=== PATIENT | male | born 1935 | race Caucasian/White ===

== ENCOUNTER 2017-05-26 09:20 | Outpatient (CLI) | payer MEDICARE ==
--- NOTE | 2017-05-26 16:06 | NM ---
TOTAL BODY BONE SCAN: 05/26/17 HISTORY: 82-year-old male with history of disorder of the bone. History of kyphoplasty in 2014 with multiple vertebral fractures as well as multiple rib fractures. COMPARISON: 11/12/13 bone scan. Patient was injected with 32.0 millicuries technetium 99m MDP intravenously. Two whole body images d emonstrate resolution of the previously noted multiple left rib fractures. There is considerably les s abnormal activity noted in the lumbar and thoracic spines with the most persistent residual activi ty noted in the right T12 region but this is definitely improved from the prior study. The previousl y noted focal area of increased activity in the sternum has resolved. There is some persistent incre ased activity in the feet, hands, shoulders, and elbows, evidence for degenerative and arthrosis quique nges. Bilateral renal and bladder activity. Dextroscoliosis of the lumbar spine. IMPRESSION: Resolution of the previously noted areas of abnormal activity in the left ribs and sternum. Consider able decrease in amount of increased activity within the thoracolumbar vertebrae with the most promi nent amount of residual activity in the right T12 region which was the site where there was intense activity previously. Stable increased activity in multiple joints, evidence for osteoarthrosis. No e vidence for other new abnormal activity. POS: JESSE
== END 2017-05-26 09:21 | disposition home or self-care (01) ==
LOC: NM 09:20
PROVIDERS: ATTEND Surgery
DX: M89.8X8 Other specified disorders of bone, other site (principal); M19.90 Unspecified osteoarthritis, unspecified site
CPT/HCPCS: 78306; A9503

== ENCOUNTER 2018-09-18 09:39 | Outpatient (CLI) | payer MEDICARE ==
--- NOTE | 2018-09-18 10:54 | CT ---
CT BRAIN: HISTORY: Unsteady gait. History of subdural hematoma. COMPARISON: 11/30/2016 TECHNIQUE: Noncontrast enhanced CT images of the brain are obtained. FINDINGS: Noncontrast enhanced CT images of the brain demonstrate no evidence of acute intracranial masses, hem orrhages, or strokes. No evidence of subdural or epidural hematoma is seen. No evidence of hydrocep halus is seen. The ventricles are of normal size. IMPRESSION: Unremarkable CT brain with no evidence of acute intracranial abnormality seen. POS: JESSE
== END 2018-09-18 09:40 | disposition home or self-care (01) ==
LOC: TBSIIMAG 09:39
PROVIDERS: ATTEND Family Medicine
DX: I62.00 Nontraumatic subdural hemorrhage, unspecified (principal)
CPT/HCPCS: 70450

== ENCOUNTER 2021-03-03 13:35 | Outpatient (CLI) | payer MEDICARE | END 2021-03-03 13:36 | disposition home or self-care (01) | LOC: SCSMRI 13:35 | PROVIDERS: ATTEND Family Medicine | DX: M48.061 Spinal stenosis, lumbar region without neurogenic claudication (principal); M51.16 Intervertebral disc disorders with radiculopathy, lumbar region; G89.4 Chronic pain syndrome; S22.081A Stable burst fracture of T11-T12 vertebra, initial encounter for closed fracture; M47.22 Other spondylosis with radiculopathy, cervical region; M48.07 Spinal stenosis, lumbosacral region; M48.04 Spinal stenosis, thoracic region; M48.05 Spinal stenosis, thoracolumbar region | CPT/HCPCS: 72148 ==

== ENCOUNTER 2021-07-27 10:39 | Observation (INO) | payer MEDICARE ==
[2021-07-22 10:24] VITALS: BMI 24.8
[2021-07-27] MEDS ORDERED: Thrombin 5000 UNITS/5 ML VIAL ONE (10:44)
[2021-07-27] MEDS ORDERED: ceFAZolin 2 GM/DEX 5% 100 ML BAG ONE ×2 (11:15→19:49)
[2021-07-27] MEDS ORDERED: Fentanyl 100 MCG/2 ML VIAL ONE ×2 (11:32→16:08)
[2021-07-27] MEDS ORDERED: Glycopyrrolate 0.2 MG/ML 5 ML SYRINGE ONE (11:41)
[2021-07-27] MEDS ORDERED: Dexamethasone 20 MG/5 ML VIAL ONE (11:41)
[2021-07-27] MEDS ORDERED: PROPOFOL 200 MG/20 ML VIAL ONE (11:41)
[2021-07-27] MEDS ORDERED: ePHEDrine 50 MG/ML VIAL ONE (11:41)
[2021-07-27] MEDS ORDERED: Phenylephrine 10 MG/ML VIAL ONE (11:41)
[2021-07-27] MEDS ORDERED: Lidocaine 1% PF 5 ML VIAL ONE (11:41)
[2021-07-27] MEDS ORDERED: Ondansetron PF 4 MG/2 ML Vial ONE (11:41)
[2021-07-27] MEDS ORDERED: Rocuronium Bromide 10 MG/ML (10ML VIAL) ONE (11:41)
[2021-07-27] MEDS ORDERED: Acetaminophen/Codeine 30-300mg Tablet PO PRN (14:26)
[2021-07-27] MEDS ORDERED: traMADol HCl 50 MG TAB PO PRN (14:26)
[2021-07-27] MEDS ORDERED: HYDROcodone/Acetaminophen 7.5/325 mg Tablet PO PRN (14:26)
[2021-07-27] MEDS ORDERED: Acetaminophen 325 MG TAB PO PRN (14:26)
[2021-07-27] MEDS ORDERED: tiZANidine HCl 4 MG TAB PO PRN (14:30)
[2021-07-27] MEDS ORDERED: Sodium Chloride 0.9% 1,000 ML IV SCH (14:30)
[2021-07-27] MEDS ORDERED: Gabapentin 300 MG CAP PO SCH (15:00)
[2021-07-27] MEDS ORDERED: Promethazine HCl 25 MG/ML VIAL IM PRN (15:16)
[2021-07-27] MEDS ORDERED: PACU-Morphine 4MG/ML VIAL SLOW IVP PRN (15:16)
[2021-07-27] MEDS ORDERED: Ondansetron HCl/PF 4 MG/2 ML Vial IVP PRN (15:16)
[2021-07-27] MEDS ORDERED: Promethazine HCl 25 MG/ML VIAL IVPB PRN (15:16)
[2021-07-27] MEDS ORDERED: Morphine 4 MG/ML VIAL SLOW IVP PRN (15:36)
[2021-07-27] MEDS ORDERED: Mometasone 200 MCG/Formoterol 5 MCG 120 PUFF INHALER INH SCH (18:30)
[2021-07-27] MEDS ORDERED: ceFAZolin Sodium/D5W 2 GM in Premix Bag 1 BAG IVPB SCH (20:00)
[2021-07-27] MEDS ORDERED: Atorvastatin Calcium 10 MG TAB PO SCH (21:00)
[2021-07-27] MEDS ORDERED: Losartan 25 MG TAB PO SCH (21:00)
[2021-07-27] MEDS ORDERED: Carvedilol 6.25 MG TAB PO SCH (21:00)
[2021-07-27] MEDS ORDERED: Gabapentin 300 MG CAP ONE (22:05)
[2021-07-27] MEDS ORDERED: Atorvastatin Calcium 10 MG TAB ONE (22:06)
[2021-07-27] MEDS ORDERED: Carvedilol 6.25 MG TAB ONE (22:06)
[2021-07-27] MEDS ORDERED: Furosemide 40 MG/4 ML VIAL ONE (22:06)
[2021-07-27] MEDS ORDERED: Losartan 25 MG TAB ONE (22:07)
[2021-07-28 02:54] VITALS: TEMP 97.2
[2021-07-28] MEDS ORDERED: ceFAZolin 2 GM/DEX 5% 100 ML BAG ONE ×2 (03:16→03:18)
[2021-07-28 04:31] VITALS: BP 118/57
[2021-07-28] MEDS ORDERED: Amlodipine 5 MG TAB PO SCH (09:00)
== END 2021-07-28 10:05 | disposition home or self-care (01) ==
LOC: SDC 10:39 → PACU-TCU 14:26
PROVIDERS: ADMIT Surgery; ATTEND Surgery
PROC: 01NB0ZZ Release Lumbar Nerve, Open Approach (ICD-10-PCS; principal; 2021-07-27)
DX: M48.062 Spinal stenosis, lumbar region with neurogenic claudication (principal); M54.16 Radiculopathy, lumbar region; M54.17 Radiculopathy, lumbosacral region; I10 Essential (primary) hypertension; E78.5 Hyperlipidemia, unspecified; G89.29 Other chronic pain; M54.9 Dorsalgia, unspecified; M19.90 Unspecified osteoarthritis, unspecified site; Z85.46 Personal history of malignant neoplasm of prostate; Z87.891 Personal history of nicotine dependence; Z79.82 Long term (current) use of aspirin; Z79.899 Other long term (current) drug therapy; Z95.5 Presence of coronary angioplasty implant and graft
CPT/HCPCS: 76000; J1100; J1940; J2370; J2405; J2704; J3010; J3370; J3490

== ENCOUNTER 2021-08-20 14:03 | Outpatient (CLI) | payer MEDICARE ==
[2021-08-21 12:10] LABS: SARS-CoV-2 PCR by NAA Not Detected (NotDetected)
== END 2021-08-20 14:04 | disposition home or self-care (01) ==
LOC: LABBT 14:03
PROVIDERS: ATTEND Surgery
DX: Z01.812 Encounter for preprocedural laboratory examination (principal); K40.90 Unilateral inguinal hernia, without obstruction or gangrene, not specified as recurrent; Z20.822 Contact with and (suspected) exposure to COVID-19
CPT/HCPCS: U0003; U0005

== ENCOUNTER 2021-08-25 08:53 | Day surgery (SDC) | payer MEDICARE ==
[2021-08-20 11:08] VITALS: BMI 23.7
[2021-08-25 09:54] LABS: #Eosinphils 1.1 thou/uL (0.0-0.7); #Lymphocytes 1.7 thou/uL (1.20-3.40); #Monocytes 0.6 thou/uL (0.11-0.59); #Neutrophils 2.9 thou/uL (1.40-6.50); %Basophils 0.1 % (0.0-1.0); %Eosinophils 16.8 % (0.0-10.0); %Neutrophils 46.2 % (42.0-75.0); Hemoglobin 11.5 g/dL (14.0-18.0); Mean Corpuscular Hemoglobin 31.9 pg (27.0-31.0); Mean Corpuscular Volume 99.7 fL (78.0-98.0); Mean Platelet Volume 8.1 fL (7.4-10.4); Platelet Count 160 thou/uL (130-400); RBC Distribution Width 12.1 % (11.5-14.5); White Blood Cell (WBC) Count 6.3 thou/uL (4.8-10.8)
[2021-08-25] MEDS ORDERED: Bupivacaine 0.25% HCL 30 ML VIAL ONE (10:14)
[2021-08-25] MEDS ORDERED: EPINEPHrine 1 MG/ML AMP ONE (10:14)
[2021-08-25 10:19] LABS: ALT (SGPT) 18 U/L (8-55); AST (SGOT) 21 U/L (5-34); Albumin 3.8 g/dL (3.4-4.8); Alkaline Phosphatase 78 U/L (40-110); Anion Gap 11 mmol/L (10-20); BUN (Urea Nitrogen) 21 mg/dL (8.4-25.7); Bilirubin, Total 0.4 mg/dL (0.2-1.2); Calc. Creatinine Clearance 51 mL/min (70-130); Calcium 9.2 mg/dL (7.8-10.44); Carbon Dioxide 25 mmol/L (23-31); Chloride 108 mmol/L (98-107); Glucose 110 mg/dL (83-110); Potassium 4.1 mmol/L (3.5-5.1); Protein, Total 6.8 g/dL (5.8-8.1); Sodium 140 mmol/L (136-145)
[2021-08-25] MEDS ORDERED: Fentanyl 100 MCG/2 ML VIAL ONE (10:32)
[2021-08-25] MEDS ORDERED: ceFAZolin 2 GM/Dextrose 50 ML IVPB ONE (10:35)
[2021-08-25] MEDS ORDERED: Glycopyrrolate 0.2 MG/ML 5 ML SYRINGE ONE (10:50)
[2021-08-25] MEDS ORDERED: Rocuronium Bromide 10 MG/ML (10ML VIAL) ONE (10:50)
[2021-08-25] MEDS ORDERED: Dexamethasone 20 MG/5 ML VIAL ONE (10:50)
[2021-08-25] MEDS ORDERED: PROPOFOL 200 MG/20 ML VIAL ONE (10:50)
[2021-08-25] MEDS ORDERED: ePHEDrine 50 MG/ML VIAL ONE (10:50)
[2021-08-25] MEDS ORDERED: Ondansetron PF 4 MG/2 ML Vial ONE (10:50)
[2021-08-25] MEDS ORDERED: Lidocaine 1% PF 5 ML VIAL ONE (10:50)
== END 2021-08-25 14:55 | disposition home or self-care (01) ==
LOC: SDC 08:53
PROVIDERS: ATTEND Surgery
PROC: 0YU50JZ Supplement Right Inguinal Region with Synthetic Substitute, Open Approach (ICD-10-PCS; principal; 2021-08-25)
DX: K40.90 Unilateral inguinal hernia, without obstruction or gangrene, not specified as recurrent (principal); I10 Essential (primary) hypertension; E78.5 Hyperlipidemia, unspecified; G89.29 Other chronic pain; M54.9 Dorsalgia, unspecified; M19.90 Unspecified osteoarthritis, unspecified site; Z85.46 Personal history of malignant neoplasm of prostate; Z87.891 Personal history of nicotine dependence; Z79.82 Long term (current) use of aspirin; Z79.899 Other long term (current) drug therapy; Z95.5 Presence of coronary angioplasty implant and graft
CPT/HCPCS: 80053; 85025; C1781; J0171; J0690; J1100; J2405; J2704; J3010; J3490; S0020

== ENCOUNTER 2021-10-07 12:20 | Outpatient (CLI) | payer MEDICARE | END 2021-10-07 12:21 | disposition home or self-care (01) | LOC: ULT 12:20 | PROVIDERS: ATTEND Family Medicine | DX: R06.00 Dyspnea, unspecified (principal); I35.8 Other nonrheumatic aortic valve disorders | CPT/HCPCS: 93306 ==